=== PATIENT | male | born 1970 | race Hispanic/Latino ===

== ENCOUNTER 2023-09-26 15:51 | Emergency (ER) | payer OTHER, SELFPAY ==
[2023-09-26 15:51] VITALS: BMI 29.1
[2023-09-26 15:52] VITALS: BP 145/81
[2023-09-26 16:12] LABS: % Basophils 0.5 % (0-2); % Eosinophils 1.9 % (0-6); % Lymphocytes 35.3 % (20.5-51.1); % Neutrophils 53.3 % (42.2-75.2); Absolute Eosinophils 0.1 10^3/uL (0-0.7); Absolute Monocytes 0.5 10^3/uL (0.1-0.6); Absolute Neutrophils 3.1 10^3/uL (1.4-6.5); Hematocrit 45.5 % (39.0-52.0); Hemoglobin 15.2 g/dL (13.0-18.0); Mean Corp Hgb Conc. 33.4 g/dL (33.0-37.0); Mean Corpuscular Hgb 28.2 pg (27.0-31.0); Mean Corpuscular Volume 84.4 fL (80.0-94.0); Mean Platelet Volume 10.1 fL (7.4-10.4); Nucleated Red Blood Cells % 0 % (-); Platelet Count 209 10^3/uL (130-400); Red Blood Cell Count 5.39 10^6/uL (4.70-6.10); White Blood Cell Count 5.8 10^3/uL (4.8-10.8)
[2023-09-26 16:31] LABS: ALT (SGPT) 21 U/L (0-50); AST (SGOT) 26 U/L (17-59); Albumin 4.8 g/dl (3.5-5.0); Alkaline Phosphatase 95 U/L (38-126); Blood Urea Nitrogen 21 mg/dl (9-20); Calcium 9.3 mg/dl (8.4-10.2); Carbon Dioxide 25 mmol/L (22-30); Chloride 106 mmol/L (98-107); Glucose 87 mg/dl (70-99); Potassium 4.8 mmol/L (3.5-5.1); Sodium 140 mmol/L (135-145); Total Bilirubin 0.7 mg/dl (0.2-1.3); Total Protein 7.6 g/dl (6.3-8.2); eGFR > 60.00
[2023-09-26 16:37] LABS: Troponin I < 0.012 ng/ml
[2023-09-26 17:33] VITALS: BP 149/77
[2023-09-26 18:00] VITALS: BP 128/94
--- NOTE | 2023-09-26 18:40 | ED.GENMED ---
History of Present Illness
General
Chief Complaint: Chest Pain
Source: patient
Exam Limitations: none
Time Seen by Provider: 09/26/23 17:54
History of Present Illness
History of Present Illness:
This is a 53 year old male that comes in with c/o abnormal ECG. States that he went to see the PCP as he went to see him for heartburn. States that they did an ECG and felt he was in heart block. Patient stats that his heart burn started last month
and occasionally he gets pressure across his chest that last only for a min. States that he has a slight headache. Denies any fever, chills, SOB, abd pain, nausea, vomiting, diarrhea, urinary burning.
Past History
Past History
ED Past Medical History: Hypercholesterolemia and Other (Viral encephalitis, )
ED Past Surgical History: None
Social History
Tobacco: Non-smoker
Alcohol: Occasional
Personal:
Living: with family
Review of Systems
Review of Systems
All Other Systems: ROS reviewed and negative except as documented in HPI and ROS
Constitutional: Reports no symptoms; Denies fever or chills
EENT: Reports no symptoms
Respiratory: Denies cough or trouble breathing
Cardiac: Reports chest pain (occasional pressure that last about 1 min)
ABD/GI: Reports no symptoms; Denies abdominal pain, nausea, vomiting or diarrhea
: Reports no symptoms
Musculoskeletal: Reports no symptoms
Skin: Reports no symptoms
Neurological: Reports headache; Denies dizzy
Psychiatric: Reports no symptoms
Phy Exam
General Physical Exam
General Presentation: well appearing and no apparent distress
General age: appears stated age
General Skin: warm and dry
General Habitus: normal
General Mental: alert
General Hydration: appears well hydrated
ENT Exam
ENT Exam: TM's normal, pharynx normal and neck supple
Eye Exam
Eye Exam: EOMI
Cardiovascular Exam
Cardiovascular Exam: regular rate/rhythm, no edema, no murmur and normal peripheral pulses
Pulmonary Exam
Pulmonary Exam: lungs clear, no respiratory distress, no rales, chest non tender, no crackles, no rhonchi, no wheezing and no cough
Gastrointestinal Exam
Gastrointestinal Exam: normal bowel sounds, non tender, soft, no organomegaly, no pulsatile mass and non distended
Musculoskeletal Exam
Musculoskeletal Exam: full ROM and no edema
Skin Exam
Skin Exam: normal color, warm/dry, no rash and no petechia
Psychiatric Exam
Psychiatric Exam: normal mood/affect
Scores
Heart Score for Chest Pain Patients
STEMI patient?: No
History: Slightly or Non-Suspicious
ECG: Normal
Age: >45 - <65 years
Risk Factors: No Risk Factors
Troponin: </= Normal Limit
Heart Score for Chest Pain Patients: 1
Heart Score Risk: 2.5% MACE over next 6 weeks
Course
Orders/Labs/Results
Orders:
Orders
09/26/23 15:57
Electrocardiogram (*1) Urgent
Reason for Study: Chest Pain
EKG- Treatment ONCE
09/26/23 16:04
CMP [Comprehensive Metabolic Panel] Urgent
Complete Blood Count/With Diff Urgent
Troponin I Urgent
Abnormal Lab Results
09/26/23
16:04
BUN 21 H mg/dl
(9-20)
09/26/23 16:04
09/26/23 16:04
Slight Dehydration. Troponin <0.012
Vital Signs
Initial and Last Documented VS:
Initial Vital Signs
Temp Pulse Resp BP Pulse Ox
97.8 F 54 16 145/81 99
09/26/23 15:52 09/26/23 15:52 09/26/23 15:52 09/26/23 15:52 09/26/23 15:52
Last Documented Vital Signs
Temp Pulse Resp BP Pulse Ox
97.8 F 50 21 128/94 99
09/26/23 15:52 09/26/23 18:30 09/26/23 18:30 09/26/23 18:00 09/26/23 15:52
Machine Shop Helper consulted with Physician
Machine Shop Helper consulted with physician?: Yes
Name of Physician Consulted: Dr. Juarez
MDM/Problems Addressed
Differential Diagnosis Includes:
1st degree heart block. Sinus with PAC's
MDM/Problems Addressed:
This is a 53 year old male that was sent in from the PCP office with c/o heart block. States that he has had heart burn for the past month and occasionally he gets chest pressure that goes across his chest.
Will get labs. ECG and long ECG sent to [facility]inery [facility]. He is in agreement with Dr. Juarez and myself that this is Sinus with PAC's. Will discharge patient home and have him follow up with the Heavy Machinery Assembler. Will place patient on the Cardiology hot
line for further evaluation. Will discharge home.
Back into see patient. Reviewed discussion with the beam saw operator. Will place patient on Protonix for his Reflux and also encouraged patient to stop his caffeine use. Patient to return with any concerns.
Chronic conditions affecting care:
NA
Acute Exacerbation and/or Progression of Chronic Illness:
NA
*Pulse Oximetry
Patient hypoxic: no
*EKG
Interpreted by ED Provider?: Yes
Heart Rate: 72
Rate: normal
Rhythm: sinus and PAC's
[place]: normal axis
Interval: first degree heart block
QRS Pattern: normal QRS
Ischemia: no ischemia
*Program Assistant Interpretation
Rate: normal
Heart Rate: 87
Rhythm: sinus and PAC's
*Critical Care Note
Total Time (30-74mins, 75-104mins- exclusive of procedures): Not Applicable
ED Attending Note
-
Portions of this chart may have been created with voice recognition software.� Occasional wrong word or��sound alike� substitutions may have occurred due to the inherent limitations of voice recognition software.
Discharge Plan
Departure
Patient Disposition: Home (Routine Discharge)
Date of Disposition: 09/26/23
Time of Disposition: 18:52
Patient with high blood pressure during this ER visit?: Yes
Condition: Good
Covid-19: Not Applicable
Discharge Problem:
Chest pain, Irregular heart rhythm
Instructions: Chest Pain DCA Follow Up, BLOOD PRESSURE
Prescriptions:
New
pantoprazole [Protonix] 40 mg tablet,delayed release (DR/EC)
40 mg PO DAILY Qty: 30 0RF
No Action
bismuth subsalicylate [Pepto-Bismol] 262 mg/15 mL Suspension
524 mg PO TIDPRN PRN (Reason: stomach issues)
lansoprazole 15 mg Capsule,Delayed Release(Dr/Ec)
15 mg PO HS
ibuprofen [Advil] 200 mg Tablet
400 mg PO BIDPRN PRN (Reason: mild pain)
loratadine [Claritin] 10 mg Tablet
10 mg PO HS
[place] 324 mg Tablet, Effervescent
1 ea PO BIDPRN PRN (Reason: heartburn)
Referrals:
Sheldon Samsno, DO [Active] - Follow up in 2-3 days
Activity Restrictions/Additional Instructions:
As discussed, your blood work shows very slight Dehydration. Please increase your water intake to 8-8oz glasses daily. Your ECG was shown to the Heavy Machinery Assembler and they feel that you are having PAC's. You have been place on the Cardiology Hot line.
This means that you will be called tomorrow so you can see the beam saw operator due to your c/o chest pain with this. Please increase your water intake to 8-8oz glasses daily. Try and stay away from the caffeine. A prescription has been sent to your
Pharmacy to help with the Indigestion. IF YOU HAVE INCREASED OR CHANGING CHEST PAIN, DIZZINESS OR YOU HAVE ANY OTHER CONCERNS PLEASE RETURN TO THE EMERGENCY ROOM.
Interventions
Interventions:
*Risk Screen - Suicide Last Done: 09/26/23 17:36
*General Assessment Last Done: 09/26/23 15:52
*Neglect/Abuse Screening Last Done: 09/26/23 17:36
ED- Fall Risk Assessment Last Done: 09/26/23 17:39
*ED COVID-19 Vaccine History Last Done: 09/26/23 15:52
ED- Cardiac Assessment Last Done: 09/26/23 17:36
Discharge Date and Time
Print Language: BENINESE
[2023-09-26 19:00] VITALS: BP 135/86
== END 2023-09-26 19:10 | disposition home or self-care (01) ==
LOC: EMR 15:51
PROVIDERS: Emergency Medicine; EMERGENCY PHYSICIAN Emergency Medicine; FAMILY PHYSICIAN Family Medicine
DX: I49.9 Cardiac arrhythmia, unspecified (principal); R07.89 Other chest pain; R51.9 Headache, unspecified; R12 Heartburn; E86.0 Dehydration; R03.0 Elevated blood-pressure reading, without diagnosis of hypertension; I45.9 Conduction disorder, unspecified; E78.00 Pure hypercholesterolemia, unspecified; K21.9 Gastro-esophageal reflux disease without esophagitis
CPT/HCPCS: 99284; 80053; 84484; 85025; 93005

== ENCOUNTER → 2023-10-19 13:10 | Outpatient (REF) | payer OTHER, SELFPAY | LOC: RCS 13:10 | PROVIDERS: ATTENDING PHYSICIAN Internal Medicine Cardiovascular Disease; FAMILY PHYSICIAN Family Medicine | DX: R07.89 Other chest pain (principal) | CPT/HCPCS: 93017; 93350 ==